=== PATIENT | male | born 1995 | race Caucasian/White ===

== ENCOUNTER → 2017-01-09 | Outpatient (CLI) | payer OTHER ==
--- NOTE | 2017-01-16 16:29 | SLEEPCENT ---
DATE OF PROCEDURE: 01/09/2017 REFERRING PROVIDER: Dr. Jorge A Parra INTERPRETATION: Nocturnal polysomnography was performed for the evaluation of sleep apnea syndrome symptoms consisting of excessive daytime sleepiness, insomnia, snoring, gasping respirations, nonrestorative sleep. A total of 7 hours and 25 minutes of data was reviewed with 377 minutes of sleep identified. Sleep latency was 49.5 minutes. Rapid eye movement (REM) latency was 111.5 minutes. All stages of sleep were observed. Sleep efficiency was 85.6%. Electrocardiogram (EKG) showed normal sinus rhythm with an average heart rate of 63 beats per minute. Speeding and slowing was noted surrounding some respiratory events. No epileptiform discharge observed. There were 46 respiratory events identified of 10 seconds in duration or longer for an apnea-hypopnea index (AHI) of 7.3. The events were predominantly obstructive apnea/hypopneas. Respiratory effort-related arousal (RERA) index was 0.3 giving a total respiratory disturbance index (RDI) of 7.6. Mean oxygen saturation for the study was 95% with a minimum recorded value of 89%. Arousal index was 9.5. Periodic limb movement index was 15.8. IMPRESSION: 1. Obstructive sleep apnea, mild. 2. Periodic limb movement, mild. RECOMMENDATION: Recommend the [facility] for determination of pressure therapy or return to Dr. Parra for consideration of tonsillectomy/adenoidectomy, depending on his oropharynx findings. Pending intervention, alcohol and sedative usage should be avoided and care should be taken when operating motor vehicles.
== END ==
LOC: M SLEEP 19:16
PROVIDERS: ATTEND Internal Medicine Pulmonary Disease
DX: G47.33 Obstructive sleep apnea (adult) (pediatric) (principal)

== ENCOUNTER 2018-06-28 13:34 | Emergency (ER) | payer OTHER ==
[2018-06-28 12:41] LABS: APPEARANCE, URINE CLEAR (CLEAR); BACTERIA, URINE AUTO NEGATIVE (NEGATIVE); BILIRUBIN, URINE AUTO NEGATIVE (NEGATIVE); BLOOD, URINE BLOOD NEGATIVE (NEGATIVE); COLOR, URINE STRAW (YELLOW); GLUCOSE, URINE (UA) AUTO NEGATIVE (NEGATIVE); KETONE, URINE AUTO NEGATIVE (NEGATIVE); LEUKOCYTE ESTERASE, URINE AUTO TRACE (NEGATIVE); MUCUS, URINE SMALL (NEGATIVE); NITRITE, URINE AUTO NEGATIVE (NEGATIVE); PROTEIN, URINE AUTO NEGATIVE (NEGATIVE); RBC, URINE AUTO 1 /HPF (0-3); SPECIFIC GRAVITY URINE AUTO 1.006 (1.002-1.035); SQUAMOUS EPITHELIAL CELL UR AU 0 /HPF (0-6); UROBILINOGEN, URINE AUTO 0.2 mg/dL (0.0-2.0); WBC, URINE AUTO 0 /HPF (0-3)
== END 2018-06-28 14:26 | disposition home or self-care (01) ==
LOC: M ED 13:34
DX: K40.91 Unilateral inguinal hernia, without obstruction or gangrene, recurrent (principal); N50.812 Left testicular pain; R22.9 Localized swelling, mass and lump, unspecified
CPT/HCPCS: 76857

== ENCOUNTER 2018-07-03 12:59 | Emergency (ER) | payer OTHER ==
[2018-07-03] MEDS: PERCOCET 5MG/325MG TAB PO (13:58)
== END 2018-07-03 15:16 | disposition home or self-care (01) ==
LOC: M ED 12:59
DX: K40.90 Unilateral inguinal hernia, without obstruction or gangrene, not specified as recurrent (principal); F17.210 Nicotine dependence, cigarettes, uncomplicated
CPT/HCPCS: 76857

== ENCOUNTER 2018-07-08 12:01 | Day surgery (SDC) | payer OTHER ==
[2018-07-08] MEDS ORDERED: ceFAZolin 2 GM/D5W 50 ML IV BAG (J0690 PER 500MG) As Ordered (12:31)
[2018-07-08] MEDS ORDERED: dexameTHASONE 4 MG/ML 1ML VIAL (J1100) As Ordered (13:58)
[2018-07-08] MEDS ORDERED: PROPOFOL 200 MG/20 ML VIAL As Ordered ×2 (13:58→16:48)
[2018-07-08] MEDS ORDERED: LIDOCAINE 2% INJ 100 MG/5 ML SDV (FOR ANES.) As Ordered ×2 (13:58→16:39)
[2018-07-08] MEDS ORDERED: MIDAZOLAM INJ 2 MG/2 ML VIAL (J2250) As Ordered (13:58)
[2018-07-08] MEDS ORDERED: ROCURONIUM BROMIDE 50 MG/5 ML VIAL As Ordered ×3 (13:58→16:39)
[2018-07-08] MEDS ORDERED: fentaNYL 100 MCG/2 ML INJECTION (J3010) As Ordered ×3 (13:59→16:40)
[2018-07-08] MEDS ORDERED: GLYCOPYRROLATE INJ 0.2 MG/ML 2 ML VIAL As Ordered ×3 (16:10→17:11)
[2018-07-08] MEDS ORDERED: KETOROLAC 60 MG/2 ML VIAL (J1885) As Ordered ×3 (16:10→17:09)
[2018-07-08] MEDS ORDERED: ONDANSETRON 4MG/2ML VIAL (J2405) As Ordered ×2 (16:10→17:09)
[2018-07-08] MEDS ORDERED: NEOSTIGMINE 10 MG/10 ML VIAL (J2710) As Ordered ×2 (16:10→17:11)
[2018-07-08] MEDS: BUPIVACAINE/EPIN 0.25% 30 ML VIAL As Ordered (16:12)
[2018-07-08] MEDS: fentaNYL 100 MCG/2 ML INJECTION (J3010) IV ×4 (16:40→17:05)
[2018-07-08] MEDS ORDERED: PERCOCET 5MG/325MG TAB As Ordered (16:40)
[2018-07-08] MEDS ORDERED: NORCO, ANEXSIA 5/325MG TABLET (HYDROcodone/ACETAMINOPHEN) PO (16:45)
[2018-07-08] MEDS: PERCOCET 5MG/325MG TAB PO ×2 (16:47→17:20)
[2018-07-08] MEDS ORDERED: ONDANSETRON 4MG/2ML VIAL (J2405) IV (17:00)
[2018-07-08] MEDS ORDERED: LR 1,000 ML IV (17:00)
[2018-07-08] MEDS ORDERED: MORPHINE 10 MG/ML 1ML VIAL (J2270) IV (17:00)
== END 2018-07-08 18:55 | disposition home or self-care (01) ==
LOC: M SDC 18:55
DX: K40.91 Unilateral inguinal hernia, without obstruction or gangrene, recurrent (principal); F17.210 Nicotine dependence, cigarettes, uncomplicated
CPT/HCPCS: 49650

== ENCOUNTER 2019-07-09 06:31 | Emergency (ER) | payer OTHER ==
[~2019-07-09] VITALS: Ht 190.5 cm; Wt 109.1 kg
[~2019-07-09 06:31] MED LIST: IBUP200C25 PO; PERC5TAB12 PO
[2019-07-09] MEDS ORDERED: KETOROLAC 30 MG/ML VIAL (J1885) IV ONE (07:15)
[2019-07-09] MEDS ORDERED: ONDANSETRON 4MG/2ML VIAL (J2405) IV ONE (07:15)
[2019-07-09] MEDS ORDERED: ONDANSETRON 4MG/2ML VIAL (J2405) As Ordered ONE (07:17)
[2019-07-09 07:51] LABS: BASO # 0.1 10^3/uL (0.0-0.2); BASO % 0.7 % (0.0-1.0); EOS # 0.5 10^3/uL (0.0-0.5); EOS % 5.4 % (0.0-3.0); HEMATOCRIT 47.1 % (42.0-52.0); HEMOGLOBIN 16.7 g/dl (13.5-17.5); LYMPH # 2.3 10^3/uL (1.5-5.0); LYMPH % 25.3 % (24.0-44.0); MEAN CORPUSCULAR HEMOGLOBIN 31.2 pg (27.0-33.0); MEAN CORPUSCULAR HGB CONC 35.5 g/dl (32.0-36.5); MEAN CORPUSCULAR VOLUME 87.9 fl (80.0-96.0); MONO # 0.9 10^3/uL (0.0-0.8); MONO % 10.2 % (0.0-5.0); NEUTROPHILS # 5.1 10^3/uL (1.5-8.5); NEUTROPHILS % 57.7 % (36.0-66.0); PLATELET COUNT, AUTOMATED 228 10^3/uL (150-450); RED BLOOD COUNT 5.36 10^6/uL (4.30-6.10); WHITE BLOOD COUNT 8.9 10^3/uL (4.0-10.0)
--- NOTE | 2019-07-09 08:14 | REP ---
KUB: Single view. History: Left lower quadrant pain and nausea. Findings: Bowel gas pattern is normal. Psoas margins and flank stripes are intact. No mass, organomegaly, or pathologic calcification is seen. No bony abnormality. Impression: Negative KUB. Electronically Signed by Nelson Boogie MD 07/09/2019 08:06 A
[2019-07-09 08:15] LABS: BLOOD UREA NITROGEN 12 MG/DL (7-18); CALCIUM LEVEL 9.1 MG/DL (8.5-10.1); CARBON DIOXIDE LEVEL 25 MEQ/L (21-32); CHLORIDE LEVEL 109 MEQ/L (98-107); CREATININE FOR GFR 1.01 MG/DL (0.70-1.30); GLOMERULAR FILTRATION RATE > 60.0 (>60); GLUCOSE, FASTING 92 MG/DL (70-100); POTASSIUM SERUM 4.6 MEQ/L (3.5-5.1); SODIUM LEVEL 141 MEQ/L (136-145)
[2019-07-09] MEDS ORDERED: KETOROLAC 30 MG/ML VIAL (J1885) As Ordered ONE (08:33)
--- NOTE | 2019-07-09 08:38 | REP ---
Bilateral inguinal ultrasound: The patient has had left inguinal pain for 3 weeks. The patient has a history of left hernia repair approximate 1 year ago and states that mesh was placed. Ultrasonography of the inguinal areas bilaterally demonstrate bilateral fat containing inguinal hernias. There is no bowel within the hernia on the right on the left. Neither hernia is reducible on the right or the left. The mesh on the left is not visible ultrasonographically. On the right. The defect at rest measures 5.3 mm and with Valsalva 16.2 mm. On the right. The defect at rest measures 24 mm and with Valsalva 29 mm. There are dilated vessels seen at the external ring bilaterally that demonstrate reflux with Valsalva bilaterally. Follow-up ultrasonography for varicoceles might be considered. Impression: The left inguinal mesh is not visible ultrasonographically. There are bilateral non reducible fat containing inguinal hernias. There is no bowel in the hernia sac on the right or the left. Possible bilateral varicoceles. Consider follow-up scrotal ultrasound for varicocele. Electronically Signed by Jamil Richardson MD 07/09/2019 08:29 A
[2019-07-09] MEDS ORDERED: ONDA4TAB6 PO (09:09)
[2019-07-09] MEDS ORDERED: NAPR-837 PO (09:09)
[2019-07-09 09:13] VITALS: BP 128/75
--- NOTE | 2019-07-09 09:54 | ED PDOC ---
Post-Departure Follow-Up ft vitaly dan faxed formal report of pelvic us for fu Shoaib Mccollum MD Jul 09, 2019 09:54
== END 2019-07-09 09:28 | disposition home or self-care (01) ==
LOC: M ED 06:31
DX: K40.20 Bilateral inguinal hernia, without obstruction or gangrene, not specified as recurrent (principal); F17.210 Nicotine dependence, cigarettes, uncomplicated
CPT/HCPCS: 36415; 74018; 76857; 80048; 83605; 85025; 96374; 96375; 99284; J1885; J2405

== ENCOUNTER 2019-09-01 12:29 | Day surgery (SDC) | payer OTHER ==
[~2019-09-01] VITALS: Ht 193 cm; Wt 109.3 kg
[~2019-09-01 12:29] MED LIST changes: +LR 1,000 ML IV ONE; +MULTCAP PO; +NAPR-837 PO; +ONDA4TAB6 PO; +ceFAZolin SOD 2 GM in IV 1 EA IV ONE
[2019-09-01 13:22] LABS: HEMATOCRIT 47.7 % (42.0-52.0); HEMOGLOBIN 16.6 g/dl (13.5-17.5); MEAN CORPUSCULAR HEMOGLOBIN 30.6 pg (27.0-33.0); MEAN CORPUSCULAR HGB CONC 34.8 g/dl (32.0-36.5); MEAN CORPUSCULAR VOLUME 87.8 fl (80.0-96.0); PLATELET COUNT, AUTOMATED 258 10^3/uL (150-450); RED BLOOD COUNT 5.43 10^6/uL (4.30-6.10); WHITE BLOOD COUNT 10.2 10^3/uL (4.0-10.0)
[2019-09-01 14:28] LABS: ALBUMIN 3.8 GM/DL (3.2-5.2); ALT/SGPT 72 U/L (12-78); BILIRUBIN,TOTAL 0.7 MG/DL (0.2-1.0); BLOOD UREA NITROGEN 12 MG/DL (7-18); CALCIUM LEVEL 9.2 MG/DL (8.5-10.1); CARBON DIOXIDE LEVEL 27 MEQ/L (21-32); CHLORIDE LEVEL 107 MEQ/L (98-107); CREATININE FOR GFR 0.97 MG/DL (0.70-1.30); GLOMERULAR FILTRATION RATE > 60.0 (>60); GLUCOSE, FASTING 86 MG/DL (70-100); POTASSIUM SERUM 3.7 MEQ/L (3.5-5.1); SODIUM LEVEL 140 MEQ/L (136-145); TOTAL PROTEIN 7.9 GM/DL (6.4-8.2)
[2019-09-01] MEDS ORDERED: KETOROLAC 60 MG/2 ML VIAL (J1885) As Ordered ONE (14:55)
[2019-09-01] MEDS ORDERED: fentaNYL 250 MCG/5 ML INJECTION (J3010) As Ordered ONE (14:56)
[2019-09-01] MEDS ORDERED: MIDAZOLAM INJ 2 MG/2 ML VIAL (J2250) As Ordered ONE (14:57)
[2019-09-01] MEDS ORDERED: dexameTHASONE 4 MG/ML 1ML VIAL (J1100) As Ordered ONE (15:01)
[2019-09-01] MEDS ORDERED: LIDOCAINE 2% INJ 100 MG/5 ML SDV (FOR ANES.) As Ordered ONE (15:01)
[2019-09-01] MEDS ORDERED: ONDANSETRON 4MG/2ML VIAL (J2405) As Ordered ONE (15:01)
[2019-09-01] MEDS ORDERED: PROPOFOL 200 MG/20 ML VIAL As Ordered ONE (15:02)
[2019-09-01] MEDS ORDERED: ROCURONIUM BROMIDE 50 MG/5 ML VIAL As Ordered ONE ×2 (15:02→16:49)
[2019-09-01] MEDS ORDERED: SUGAMMADEX SODIUM 500 MG/5 ML VIAL (BRIDION) As Ordered ONE (15:06)
[2019-09-01] MEDS ORDERED: BUPIVACAINE/EPIN 0.25% 30 ML VIAL As Ordered ONE (16:08)
[2019-09-01] MEDS ORDERED: SCOPOLAMINE 1MG TRANSDERMAL PATCH As Ordered ONE (16:20)
[2019-09-01] MEDS ORDERED: ACETAMINOPHEN 1000MG 100ML IV BTL (OFIRMEV) (J0131 PER 10MG) As Ordered ONE (16:46)
[2019-09-01] MEDS ORDERED: HYDROMORPHONE HCL 0.5 MG/ 0.5 ML SYRINGE (J1170 PER 1) IV PRN (18:45)
[2019-09-01] MEDS ORDERED: fentaNYL 100 MCG/2 ML INJECTION (J3010) IV PRN (18:45)
[2019-09-01] MEDS ORDERED: NORCO, ANEXSIA 5/325MG TABLET (HYDROcodone/ACETAMINOPHEN) PO PRN (18:45)
[2019-09-01] MEDS ORDERED: ONDANSETRON 4MG/2ML VIAL (J2405) IV PRN (18:45)
[2019-09-01] MEDS ORDERED: LR 1,000 ML IV SCH (18:45)
[2019-09-01] MEDS ORDERED: PERCOCET 5MG/325MG TAB PO PRN (18:45)
[2019-09-01] MEDS ORDERED: SCOPOLAMINE 1MG TRANSDERMAL PATCH TOP ONE (19:00)
[2019-09-01 20:40] VITALS: BP 153/72
[2019-09-01] MEDS ORDERED: HYDR-4571 PO (21:22)
--- NOTE | 2019-09-02 09:57 | RO ---
DATE OF PROCEDURE: 09/01/2019 PREOPERATIVE DIAGNOSIS: Recurrent left inguinal hernia and right inguinal hernia. POSTOPERATIVE DIAGNOSIS: Recurrent left inguina hernia and right inguinal hernia. PROCEDURE: Robotic repair of recurrent left inguinal hernia and right inguinal hernia. SURGEON: Dr. Jamil Petersen BOXING MACHINE OPERATOR: None. ANESTHESIA: General. ESTIMATED BLOOD LOSS: 5. COMPLICATIONS: None. INDICATION FOR PROCEDURE: The patient is a 24-year-old male who presents with left groin pain and found to have a large left recurrent inguinal hernia. He also had a small right hernia. Recommendation was to proceed with robotic repair of both. The risks and benefits of the procedure not limited to, but including bleeding, infection, hernia formation, hernia recurrence, damage to surrounding structures, and need for further surgery were discussed in detail with the patient and informed consent was obtained and the procedure was planned. DESCRIPTION OF PROCEDURE: The patient brought back to operating room seven, after sufficient sedation the abdomen was sterilely prepped and draped. Next a time-out was done to confirm proper patient and proper procedure. Following that, 8 mm incisions were made through his previous three robotic incision sites across the abdomen on the left side. Veress needle was inserted and the abdomen was insufflated to 15 mmHg. Next the 8 mm robotic OptiVu port was used to gain access to the abdomen through the middle incision. The Veress needle site was examined. There were no signs of any injury. The Veress needle was then removed and replaced with an 8 mm port. Another 8 mm port was placed on the right side. The robot was then connected to the ports and the patient was placed in 15 degrees Trendelenburg. Next, starting in the right groin the preperitoneal space was entered. There were no direct hernias on this side, but there was a very large cord lipoma. This was carefully dissected free from all of the cord structures and reduced completely. The preperitoneal space was then dissected free medially, laterally and posteriorly, thus completing the dissection on the right side. On the left, he had had a previous repair. I was still able to dissect fairly easily through the preperitoneal space. The mesh was in place and well grown into the abdominal wall. There was an indirect recurrent defect laterally as well as a large direct component medially. Once these were all completely reduced, I was able to take a #2-0 V-Loc suture and close both of those defects primarily. Once that was completed, a Bard 3-D Max light medium mesh was placed into the preperitoneal space on left and right sides and sutured at pubic symphysis with interrupted #2-0 Vicryl sutures. The peritoneum was then closed over top of each mesh using a #2-0 V-Loc, thus ending the procedure. The patient tolerated procedure well and was sent to the postanesthesia care unit (PACU) in stable condition.
--- NOTE | 2019-09-02 21:33 | ECGEPIP ---
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
== END 2019-09-01 20:50 | disposition home or self-care (01) ==
LOC: M SDC 12:29
PROVIDERS: ATTEND Surgery
DX: K40.21 Bilateral inguinal hernia, without obstruction or gangrene, recurrent (principal); G47.30 Sleep apnea, unspecified; K21.9 Gastro-esophageal reflux disease without esophagitis; F17.210 Nicotine dependence, cigarettes, uncomplicated
CPT/HCPCS: 36415; 49650; 80053; 85027; 93005; C1781; J0131; J0690; J1100; J1885; J2250; J2405; J3010

== ENCOUNTER 2019-11-06 13:37 | Emergency (ER) | payer OTHER ==
[~2019-11-06] VITALS: Ht 190.5 cm; Wt 113.6 kg
[~2019-11-06 13:37] MED LIST changes: +HYDR-4571 PO; -LR 1,000 ML IV ONE; -ceFAZolin SOD 2 GM in IV 1 EA IV ONE
[2019-11-06] MEDS ORDERED: IBUP-1022 PO (13:42)
[2019-11-06 14:59] LABS: BASO # 0.1 10^3/uL (0.0-0.2); BASO % 0.7 % (0.0-1.0); EOS # 0.4 10^3/uL (0.0-0.5); EOS % 4.7 % (0.0-3.0); HEMATOCRIT 44.6 % (42.0-52.0); HEMOGLOBIN 15.9 g/dl (13.5-17.5); LYMPH # 2.9 10^3/uL (1.5-5.0); LYMPH % 33.6 % (24.0-44.0); MEAN CORPUSCULAR HEMOGLOBIN 30.7 pg (27.0-33.0); MEAN CORPUSCULAR HGB CONC 35.7 g/dl (32.0-36.5); MEAN CORPUSCULAR VOLUME 86.1 fl (80.0-96.0); MONO # 0.7 10^3/uL (0.0-0.8); MONO % 7.8 % (0.0-5.0); NEUTROPHILS # 4.6 10^3/uL (1.5-8.5); NEUTROPHILS % 52.9 % (36.0-66.0); PLATELET COUNT, AUTOMATED 275 10^3/uL (150-450); RED BLOOD COUNT 5.18 10^6/uL (4.30-6.10); WHITE BLOOD COUNT 8.7 10^3/uL (4.0-10.0)
[2019-11-06 15:12] LABS: ALBUMIN 3.9 GM/DL (3.2-5.2); ALT/SGPT 129 U/L (12-78); BILIRUBIN,DIRECT 0.1 MG/DL (0.0-0.2); BILIRUBIN,TOTAL 0.4 MG/DL (0.2-1.0); BLOOD UREA NITROGEN 11 MG/DL (7-18); CALCIUM LEVEL 8.8 MG/DL (8.5-10.1); CARBON DIOXIDE LEVEL 28 MEQ/L (21-32); CHLORIDE LEVEL 106 MEQ/L (98-107); CREATININE FOR GFR 1.09 MG/DL (0.70-1.30); GLOMERULAR FILTRATION RATE > 60.0 (>60); GLUCOSE, FASTING 104 MG/DL (70-100); LIPASE 160 U/L (73-393); SODIUM LEVEL 140 MEQ/L (136-145); TOTAL PROTEIN 7.4 GM/DL (6.4-8.2)
[2019-11-06] MEDS ORDERED: PERCOCET 5MG/325MG TAB PO ONE (15:15)
--- NOTE | 2019-11-06 16:40 | REP ---
Left inguinal ultrasound for hernia: The patient reportedly had a left inguinal repair at that was repeated and June 2018 and had bilateral inguinal repair in August 2019. Evaluation of the left inguinal canal with and without Valsalva is performed. There is no identifiable left inguinal hernia. The right inguinal canals also evaluated with and without Valsalva. There is no right inguinal hernia. Impression: There is no inguinal hernia on the left on the right. Electronically Signed by Jamil Richardson MD 11/06/2019 04:30 P
[2019-11-06] MEDS ORDERED: ULTR50TA8 PO (17:15)
[2019-11-06] MEDS ORDERED: PERC5TAB12 PO (17:16)
[2019-11-06 17:31] VITALS: BP 169/87
== END 2019-11-06 17:34 | disposition home or self-care (01) ==
LOC: M ED 13:37
DX: G89.18 Other acute postprocedural pain (principal); R10.30 Lower abdominal pain, unspecified

== ENCOUNTER → 2021-08-11 | Outpatient (REF) ==
[~2021-08-11] MED LIST changes: +IBUP-1022 PO; +ULTR50TA8 PO
--- NOTE | 2021-08-11 13:23 | REP ---
INDICATION: SOB. COMPARISON: None. TECHNIQUE: PA and lateral FINDINGS: There is a tiny nodular density in the right upper lobe partially superimposed over the anterior aspect of the right 3rd rib. The lung gordon are otherwise clear. The heart is not enlarged. The pleural angles are sharp. The osseous structures are within normal limits. IMPRESSION: Tiny nodular density as described above possibly representing a calcified granuloma. Due to the patient's young age neoplastic change is much less likely, however, since are no priors for comparison and since the patient complains of dyspnea on and off for 2 years consider follow-up with contrast enhanced CT of the chest if clinically relevant. <Electronically signed by Sam Nobles > 08/11/21 2143
== END ==
LOC: M PLAIMG 10:34
PROVIDERS: ATTEND Internal Medicine
DX: R06.02 Shortness of breath (principal); R91.8 Other nonspecific abnormal finding of lung field